=== PATIENT | male | born 1950 | race Caucasian/White ===

== ENCOUNTER 2019-04-23 23:26 | Inpatient (IN) | payer MEDICARE, BC ==
--- NOTE | 2019-04-23 23:54 | RAD ---
EXAM: Chest one view: HISTORY: Syncopal episode COMPARISON: None FINDINGS: Left ICD. Heart size: Within normal limits. Lungs: Clear of acute process. No evidence for pneumonia, pleural effusion, acute edema, or pneumothorax, or other significant acute process. IMPRESSION: No significant acute intrathoracic disease.
[2019-04-24 00:48] LABS: #Eosinphils 0.1 thou/uL (0.0-0.7); #Lymphocytes 0.9 thou/uL (1.20-3.40); #Monocytes 0.7 thou/uL (0.11-0.59); #Neutrophils 10.7 thou/uL (1.40-6.50); %Basophils 0.2 % (0.0-1.0); %Eosinophils 0.7 % (0.0-10.0); %Lymphocytes 7.3 % (21.0-51.0); %Monocytes 5.9 % (0.0-10.0); %Neutrophils 85.8 % (42.0-75.0); Hemoglobin 12.2 g/dL (14.0-18.0); Mean Corpuscular HGB CONC 34.7 g/dL (32.0-36.0); Mean Corpuscular Hemoglobin 31.5 pg (27.0-31.0); Mean Corpuscular Volume 90.7 fL (78.0-98.0); Mean Platelet Volume 7.5 fL (7.4-10.4); Platelet Count 167 thou/uL (130-400); RBC Distribution Width 13.6 % (11.5-14.5); Red Blood Cell (RBC) Count 3.87 mill/uL (4.70-6.10); White Blood Cell (WBC) Count 12.5 thou/uL (4.8-10.8)
[2019-04-24 01:10] LABS: ALT (SGPT) 19 U/L (8-55); AST (SGOT) 20 U/L (5-34); Albumin 3.9 g/dL (3.4-4.8); Alkaline Phosphatase 74 U/L (40-150); Anion Gap 17 mmol/L (10-20); BUN (Urea Nitrogen) 30 mg/dL (8.4-25.7); Bilirubin, Total 0.5 mg/dL (0.2-1.2); CK (CPK) 199 U/L (30-200); Calc. Creatinine Clearance 0 mL/min (70-130); Calcium 9.3 mg/dL (7.8-10.44); Carbon Dioxide 21 mmol/L (23-31); Chloride 98 mmol/L (98-107); Estimated GFR-MDRD 41; Globulin 2.3 g/dL (2.4-3.5); Glucose 105 mg/dL (80-115); Potassium 3.2 mmol/L (3.5-5.1); Protein, Total 6.2 g/dL (5.8-8.1); Sodium 133 mmol/L (136-145)
[2019-04-24 02:14] LABS: Bilirubin Negative (Negative); Blood, Urine Negative (Negative); Clarity CLEAR (Clear); Glucose, Urine (Dipstick) Negative (Negative); Leukocyte Negative (Negative); Nitrite Negative (Negative); Protein, Urine (Dipstick) Negative (Neg-Trace); Urobilinogen 0.2 mg/dL (0.2-1.0)
[2019-04-24] MEDS ORDERED: Potassium Chloride 20 MEQ TAB ONE (03:18)
[2019-04-24 04:03] VITALS: BMI 34.0
[2019-04-24 04:21] LABS: Troponin I Less than 0.010 ng/mL (< 0.028)
[2019-04-24] MEDS ORDERED: Ondansetron ODT 4 MG TAB SL PRN (04:25)
[2019-04-24] MEDS ORDERED: Acetaminophen 325 MG TAB PO PRN (04:25)
[2019-04-24] MEDS ORDERED: Ondansetron PF 4 MG/2 ML Vial IVP PRN (04:25)
[2019-04-24 07:16] LABS: Troponin I Less than 0.010 ng/mL (< 0.028)
[2019-04-24] MEDS: Sodium Chloride 0.9% 1,000 ML IV SCH ×2 (08:38→18:48)
[2019-04-24] MEDS ORDERED: Non-Formulary Item 1 EACH (Atenolol [Tenormin] 100 MG) PO SCH (09:00)
--- NOTE | 2019-04-24 09:07 | HP ---
PRIMARY CARE PHYSICIAN: [facility] primary care provider. CHIEF COMPLAINT: Transient loss of consciousness (syncopal episode). 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 The patient is on hydrochlorothiazide for high blood pressure. While umpiring 3 baseball games yesterday rehydrated with both Pedialyte and water as he always does during his previous games and was fine until after the game. However, while relaxing with friends in a restaurant, he suddenly felt unwell and nauseated and was about to go to the restroom when he reportedly passed out. EMS arrived and initial vitals showed that the patient was hypotensive with systolic blood pressure of 75 and diastolic of 36 with pulse of 61 and blood glucose of 122. They reportedly gave 1 L of normal saline. The patient came to almost immediately when EMS arrived, but had passed out again when he tried to get up. EMS treated with 1 L of normal saline with prompt improvement in blood pressure to 126/75 and pulse of 72. He was subsequently brought to the hospital. Systolic blood pressures remained above 100 subsequently. Further evaluation with CMP showed both hypokalemia as well as elevated creatinine. The patient was admitted for further evaluation and treatment. He currently feels back to normal. Denied chest pain, palpitations, dizziness, nausea, vomiting, focal weakness, dysuria, hematuria, abdominal pain, or leg swelling. The patient also reported prior episodes of syncope, which was found to be due to severe bradycardia with heart rate dropping to 30s, hence had an ICD placed about 20 years ago. He otherwise has been healthy, exercising every day. He also has been umpiring baseball games at about the same intensity week in, week out and has never had a similar problem. He also denied fever or change in weight. PAST MEDICAL HISTORY: 1. Arthritis on methotrexate. 2. Hypertension. 3. Heart block, status post ICD placement. 4. Hypothyroidism. 5. Hyperlipidemia. PAST SURGICAL HISTORY: 1. ICD placement. 2. Umbilical hernia repair. 3. Hand surgery. FAMILY HISTORY: Significant for kidney cancer in mother and leukemia in father, otherwise noncontributory. SOCIAL HISTORY: The patient lives with family in [place]. He does not smoke. Occasionally drinks alcohol. Denied recreational drug use. 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 ALLERGIES: NO KNOWN DRUG ALLERGY REPORTED. HOME MEDICATIONS: 1. Ascorbic acid 1000 mg p.o. daily. 2. Aspirin 81 mg p.o. daily. 3. Atenolol 100 mg p.o. daily. 4. Lipitor 10 mg p.o. daily. 5. Vitamin D 5000 units daily. 6. Vitamin B12 1000 mg daily. 7. Fish oil one capsule t.i.d. 8. Folic acid 1 mg p.o. daily. 9. Hydrochlorothiazide 12.5 mg p.o. daily. 10. Levothyroxine 188 mcg p.o. daily. 11. Loratadine 10 mg p.o. daily. 12. Methotrexate 15 mg p.o. on Sundays. 13. Multivitamin with mineral, folic acid, lycopene, lutein one tablet p.o. daily. REVIEW OF SYSTEMS: Twelve-point review of system performed was negative other than pertinent positives and negatives included in the history of present illness. PHYSICAL EXAMINATION: VITAL SIGNS: Current vitals showed temperature 97.5, pulse 67, respiratory rate 16, SpO2 of 99% on room air, blood pressure supine 121/62. GENERAL: Healthy-looking elderly male, in no obvious distress. Afebrile. Anicteric. Acyanotic. The patient looks younger than stated age. HEENT: Normocephalic, atraumatic. Pupils are equal and reacting to light. Oral mucosa is moist. NECK: Supple and nontender with full range of motion. No masses or lymphadenopathy appreciated. CARDIOVASCULAR: Regular rhythm and rate with normal heart sounds 1 and 2. No murmur is appreciated. RESPIRATORY: Good air entry bilaterally with no crackle, rhonchi, or use of accessory muscles. GI: Abdomen is full, soft, nontender, nondistended with normal bowel sounds. EXTREMITIES: Grossly normal looking, atraumatic with no edema, erythema, or cyanosis. Distal pulses are palpable. NEUROLOGIC: Conscious, alert, and oriented x3 with appropriate mental status. Cranial nerves 2 through 12 are intact. The patient is ambulant. PSYCHIATRIC: Normal affect and mood. The patient is cooperative. LABORATORY DATA: CBC showed WBC count of 12.5, hemoglobin of 12.2, MCV of 90.7, platelet of 167. CMP showed sodium of 133, potassium 3.2, chloride 98, CO2 of 21, anion gap 17, BUN 30, creatinine 1.67, glucose 105, calcium 9.3, bilirubin 0.5, AST 20, ALT 19, alkaline phosphatase 74, total protein 6.2, albumin 3.9, globulin 2.3. Serial troponin has been less than 0.012. CK 199. Urinalysis showed yellow clear urine with pH of 5.5 and specific gravity of 1.017. Protein, glucose, ketones, blood, nitrite, bilirubin, and leukocyte esterase were all negative. IMAGING STUDIES: EKG on presentation to the ER showed rate of 69 with no ischemic changes. Chest x-ray showed normal-sized heart with clear lungs and no evidence of acute intrathoracic disease. ASSESSMENT: 1. Acute syncopal episode. This most likely is due to orthostatic syncope, given the fact that the patient passed out on standing up. Hypotension also played a significant role as well as dehydration. The patient walked under the sun for several hours, though he claimed that is his usual and he took water and Pedialyte as always while sweating. He, however, is on hydrochlorothiazide. Post-syncope, blood pressure was noted to be 75/36. The patient; however, had prior history of syncope due to bradycardia. Questionable if a cardiac etiology is contributing at this time. 2. Hypotension: Related to volume depletion and fluid shift. Improved with normal saline. 3. Acute kidney injury: Most likely related to volume depletion from excessive water loss. 4. Hypokalemia: Most likely related to hydrochlorothiazide therapy. 5. Hypothyroidism, on replacement therapy. 6. Arthritis, on methotrexate. 7. Hyperlipidemia, on Lipitor. PLAN: 1. We will start the patient on IV fluid therapy with normal saline at 100 mL/hour. 2. We will also monitor orthostatic vitals. 3. Acute coronary syndrome has been ruled out with serial troponin. We will further evaluate this patient who is high functioning with echocardiogram and carotid Doppler. We will also interrogate the pacemaker. We will also get Cardiology consult to see if there is any alteration in the pacemaker. 4. We will hold atenolol and hydrochlorothiazide at this time. We will continue all other home medications. We will recheck renal function and monitor closely. We will also replete serum potassium. 5. DVT prophylaxis with Lovenox will be provided. 6. Code status: The patient is full code and spouse is the surrogate decision maker. Further recommendation to follow on review of other labs and depending on hospital course. Job ID: [id number]
[2019-04-24] MEDS: Ascorbic Acid 500 mg Chewable Tablet PO SCH (09:30)
[2019-04-24] MEDS: Folic Acid 1 MG TAB PO SCH (09:30)
[2019-04-24] MEDS: Fish Oil 1,000 MG CAP PO SCH ×3 (09:30→20:27)
[2019-04-24] MEDS: Aspirin 81 mg Enteric Coated Tablet PO SCH (09:31)
[2019-04-24] MEDS: Enoxaparin Sodium 40 MG/0.4 ML SYRINGE SC SCH (09:31)
[2019-04-24] MEDS: Atorvastatin Calcium 10 MG TAB PO SCH (09:31)
[2019-04-24] MEDS: Cyanocobalamin (Vitamin B-12) 1,000 MCG TAB PO SCH (09:31)
[2019-04-24 09:39] LABS: Anion Gap 17 mmol/L (10-20); BUN (Urea Nitrogen) 25 mg/dL (8.4-25.7); Calc. Creatinine Clearance 75 mL/min (70-130); Calcium 9.2 mg/dL (7.8-10.44); Carbon Dioxide 21 mmol/L (23-31); Chloride 101 mmol/L (98-107); Estimated GFR-MDRD 54; Glucose 102 mg/dL (80-115); Magnesium 2.3 mg/dL (1.6-2.6); Potassium 3.8 mmol/L (3.5-5.1); Sodium 135 mmol/L (136-145)
--- NOTE | 2019-04-24 09:49 | ULT ---
US Carotid Doppler STANDARD HISTORY: Syncope COMPARISON: None. FINDINGS: Real-time color Doppler evaluation right and left carotid system shows mild plaque formatio n origin of both internal carotid arteries more prominent on the right. On the right side peak systolic velocities of the common carotid 120 cm/s. Internal carotid velocity 69 cm/s external carotid velocities 81 cm per. On the left side peak systolic velocities the common carotid 119 cm/s internal carotid velocity 77 cm /s and external carotid velocity 79 dissection. Vertebral flow is antegrade bilaterally IMPRESSION: No evidence of hemodynamically significant stenosis of either internal carotid artery.
--- NOTE | 2019-04-24 18:01 | CON ---
DATE OF CONSULTATION: 04/24/2019 REASON FOR CONSULTATION: Syncope. 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 HISTORY OF PRESENT ILLNESS: Mr. Watters is a pleasant 68-year-old white gentleman, who comes to the hospital after a syncopal spell. 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 He drove from [place] to look over five games that happened close to the [facility]. He did that earlier this morning in the sun, it was very hot. He has his usual routine, where he maintains hydration. He states he umpired three out of the five games. He eventually went back to his hotel, took a shower and eventually was having lunch with friends. He was not feeling that well. He stood up to go to the bathroom, he says to put some water on his face and he actually collapsed to the floor, he passed out. His friends ran to him and he was already awoke again, so they stood him up and when they stood him up, he again lost consciousness, so they put him on the floor. He woke up again. They called EMS. They kept him on the floor. When EMS arrived, his blood pressure was 70/36 and a pulse of 61, glucose was 122. They gave him 1 L of normal saline, brought him into the hospital. Here, he is doing well. He feels much better. Blood pressure is in the 120s over 70s, pulse in the 70s. He has a history of syncope in the past, thought to be from bradycardia and he had a pacemaker placed. This was interrogated today and shows no evidence of tachy or bradyarrhythmias. PAST MEDICAL HISTORY: 1. Arthritis with methotrexate. 2. Hypertension. 3. Complete heart block, status post pacemaker placement. 4. Hypothyroidism. 5. Hyperlipidemia. SURGICAL HISTORY: 1. Pacemaker placement. 2. Umbilical hernia repair. 3. Hand surgery. FAMILY HISTORY: Noncontributory. SOCIAL HISTORY: No alcohol, tobacco, or drugs. Social alcohol use. ALLERGIES: NO KNOWN DRUG ALLERGIES. OUTPATIENT MEDICATIONS: 1. Ascorbic acid. 2. Aspirin 81. 3. Tylenol 100 a day. 4. Lipitor 10 mg a day. 5. Vitamin D. 6. Vitamin B12. 7. Fish oil. 8. Folic acid. 9. Hydrochlorothiazide 12.5 mg a day. 10. Levothyroxine a day. 11. Loratadine. 12. Methotrexate. 13. Multivitamins. REVIEW OF SYSTEMS: A 12-point review of systems was done and was all negative unless stated in the history of present illness. PHYSICAL EXAMINATION: VITAL SIGNS: Temperature 98.4, pulse 78, respiratory rate 14, saturating 95% on room air, and blood pressure 128/60. On arrival, he was 130/66 sitting and 122/66 standing. GENERAL: Awake, alert, and oriented x3. No distress. HEENT: Normocephalic and atraumatic. NECK: Supple. LUNGS: Clear. CARDIOVASCULAR: S1 and S2. No S3 or S4. No murmurs. ABDOMEN: Soft. Positive bowel sounds. EXTREMITIES: No edema. SKIN: Warm and dry. LABORATORY DATA: Laboratory work was reviewed. CBC was reviewed, unremarkable on arrival. CMP showed a BUN of 30, creatinine of 1.67, this was at midnight last night, now at 1.31 since IV fluids were given. Troponin negative x3. His potassium has improved from 3.2 up to 3.8. Interrogation of pacemaker shows no evidence of tachy or bradyarrhythmias recently. He did have several episodes of high atrial rates back in September, another episode in January of this year. He has been asymptomatic throughout all these. They seem to be atrial tach, if any case heart rate is in the 150s. ASSESSMENT AND PLAN: 1. Syncope. Most likely orthostatic hypotension from dehydration from being out in the sun. 2. History of previous syncope from a complete heart block, status post pacemaker placement. No tachy or bradyarrhythmias on interrogation. 3. He may be discharged home any time. As far as driving restrictions, he has an obvious reason for his syncope. He was dehydrated and hypotensive. He should be able to drive, however, precautions have been given to him that if he feels like the way he felt before he was walking to the bathroom, he needs to casing puller, he needs to stop his car. He understands and verbalized understanding of this. He will avoid driving if he ever feels this way. 4. Thank you for letting me to participate in the care of your patient. Job ID: [id number]
[2019-04-25 03:55] VITALS: TEMP 97.9
[2019-04-25] MEDS: Sodium Chloride 0.9% 1,000 ML IV SCH (04:50)
[2019-04-25 07:13] LABS: #Eosinphils 0.1 thou/uL (0.0-0.7); #Lymphocytes 1.2 thou/uL (1.20-3.40); #Monocytes 0.5 thou/uL (0.11-0.59); #Neutrophils 4.8 thou/uL (1.40-6.50); %Basophils 0.7 % (0.0-1.0); %Eosinophils 1.1 % (0.0-10.0); %Lymphocytes 17.5 % (21.0-51.0); %Monocytes 8.2 % (0.0-10.0); %Neutrophils 72.5 % (42.0-75.0); Hemoglobin 11.4 g/dL (14.0-18.0); Mean Corpuscular HGB CONC 34.3 g/dL (32.0-36.0); Mean Corpuscular Hemoglobin 32.1 pg (27.0-31.0); Mean Corpuscular Volume 93.4 fL (78.0-98.0); Mean Platelet Volume 7.6 fL (7.4-10.4); Platelet Count 163 thou/uL (130-400); RBC Distribution Width 13.7 % (11.5-14.5); Red Blood Cell (RBC) Count 3.57 mill/uL (4.70-6.10); White Blood Cell (WBC) Count 6.6 thou/uL (4.8-10.8)
[2019-04-25 07:29] LABS: Anion Gap 11 mmol/L (10-20); BUN (Urea Nitrogen) 11 mg/dL (8.4-25.7); Calc. Creatinine Clearance 128 mL/min (70-130); Calcium 8.9 mg/dL (7.8-10.44); Carbon Dioxide 26 mmol/L (23-31); Chloride 106 mmol/L (98-107); Estimated GFR-MDRD Greater than 90; Glucose 104 mg/dL (80-115); Potassium 3.6 mmol/L (3.5-5.1); Sodium 139 mmol/L (136-145)
[2019-04-25] MEDS ORDERED: Methotrexate Sodium 2.5 MG TAB PO SCH (08:00)
[2019-04-25] MEDS: Folic Acid 1 MG TAB PO SCH (08:37)
[2019-04-25] MEDS: Fish Oil 1,000 MG CAP PO SCH (08:37)
[2019-04-25] MEDS: Aspirin 81 mg Enteric Coated Tablet PO SCH (08:37)
[2019-04-25] MEDS: Atorvastatin Calcium 10 MG TAB PO SCH (08:38)
[2019-04-25] MEDS: Cyanocobalamin (Vitamin B-12) 1,000 MCG TAB PO SCH (08:38)
[2019-04-25] MEDS: Ascorbic Acid 500 mg Chewable Tablet PO SCH (08:38)
[2019-04-25] MEDS: Enoxaparin Sodium 40 MG/0.4 ML SYRINGE SC SCH (08:39)
[2019-04-25 08:43] VITALS: BP 126/64
[2019-04-25] MEDS ORDERED: Atenolol 25 MG TAB PO SCH (09:00)
--- NOTE | 2019-04-25 11:33 | DIS ---
DATE OF ADMISSION: 04/24/2019 DATE OF DISCHARGE: 04/25/2019 DISCHARGE DIAGNOSES: 1. Hypotensive syncope. 2. Hypotension. 3. Volume depletion. 4. Acute kidney injury. 5. Hypokalemia. 6. Presumed heat injury. 7. Hypothyroidism. 8. Inflammatory arthritis. CONSULTS: Cardiology. 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 The patient was found to be hypotensive and was treated with IV fluid with improvement in blood pressure. The patient who was on hydrochlorothiazide and atenolol for hypertension had these held while IV fluid therapy was commenced with improvement. He remained stable. The patient initially had orthostatic hypotension, which resolved later on with IV fluid therapy. Given history of bradycardia and syncope in the past, status post pacemaker placement, we interrogated the pacemaker, which showed some tachy arrhythmia, but none recently. Cardiology consult was obtained and he recommended close followup with usual chief of anesthesiology. The patient also was further evaluated with carotid Doppler, which showed no significant stenosis. Echocardiogram was also obtained, but results of this is pending at the time of discharge. With improvement in blood pressure, atenolol was restarted at a lower dose of 25 instead of usual 100 while hydrochlorothiazide was discontinued. Of note, the patient had creatinine of 1.6 on presentation with IV fluid therapy to resolve to 0.7. 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 PHYSICAL EXAMINATION: VITAL SIGNS: Temperature 97.9, pulse 77, blood pressure 126/64, SpO2 93 on room air. GENERAL: Healthy-looking elderly male, in no distress. Afebrile. Anicteric. Acyanotic. HEENT: Normocephalic, atraumatic. Pupils are equal and reacting to light. Oral mucosa is moist. CARDIOVASCULAR: Regular rhythm and rate with normal heart sounds. RESPIRATORY: Good air entry bilaterally with no crackle or rhonchi or use of accessory muscles. GI: Full, soft, nontender, nondistended with normal bowel sounds. EXTREMITIES: Mild left wrist and hand swelling noted. Otherwise, all other extremities are grossly normal, atraumatic with no edema and erythema. NEUROLOGIC: Conscious, alert, oriented x3 with appropriate mental status. Cranial nerves 2 through 12 are intact. The patient is ambulant. DISCHARGE CONDITION: Improved. DISCHARGE MEDICATIONS: 1. Vitamin C 1000 mg p.o. daily. 2. Aspirin 81 mg p.o. daily. 3. Lipitor 10 mg p.o. daily. 4. Vitamin D 5000 units p.o. daily. 5. Vitamin B12 2500 mcg daily. 6. Fish oil 1500 mg t.i.d. 7. Folic acid 1 mg p.o. daily. 8. Synthroid 188 mcg p.o. daily. 9. Loratadine 10 mg p.o. daily. 10. Methotrexate 15 mg p.o. every Friday. 11. Atenolol 25 mg p.o. daily. FOLLOWUP: The patient was advised to follow with PCP and regular chief of anesthesiology within 1 week of discharge. This discharge took less than 30 minutes. Job ID: [id number]
== END 2019-04-25 15:27 | disposition home or self-care (01) | DRG 312 ==
LOC: ERS 23:26 → 2NO 04-24 03:52
PROVIDERS: ADMIT Internal Medicine; ATTEND Internal Medicine
DX: I95.1 Orthostatic hypotension (principal); N17.9 Acute kidney failure, unspecified; T67.3XXA Heat exhaustion, anhydrotic, initial encounter; I10 Essential (primary) hypertension; E78.00 Pure hypercholesterolemia, unspecified; M19.90 Unspecified osteoarthritis, unspecified site; E03.9 Hypothyroidism, unspecified; E86.0 Dehydration; E87.6 Hypokalemia; Z95.0 Presence of cardiac pacemaker; Z79.899 Other long term (current) drug therapy; Z79.82 Long term (current) use of aspirin
CPT/HCPCS: 36415; 71045; 80048; 80053; 81003; 82550; 83735; 84484; 85025; 93005; 93306; 93880; J1650; J8610